=== PATIENT | male | born 1990 | race Caucasian/White ===

== ENCOUNTER 2017-08-27 01:33 | Emergency (ER) | payer SELFPAY ==
--- NOTE | 2017-08-27 02:17 | PDOC ---
History of Present Illness - General History Source: Patient <Jad Abdul - Last Filed: 08/27/17 03:03> - General History Source: Patient Exam Limitations: No Limitations - History of Present Illness Initial Comments: 08/27/17 03:14 Patient is a 27 year old male with no significant past medical history who presents to the ED with complaints of flu like symptoms that began earlier today. Patient reports experiencing non productive cough on wednesday as well as a headache. He reports experiencing intermittent episodes of diarrhea as well as subjective fevers, chills. Patient reports experiencing gradual dizziness while at home, stating he felt increasingly dizzy until he fell off of his bed. He reports working around multiple people who come into the state from [place] who are sick with colds and the flu and believes he has caught the flu from them. Patient reports taking one dosage of amoxicillin antibiotics this afternoon at 3pm stating he believed it would help alleviate with his abdominal pain. Denies chest pain, Sob. Denies nausea, vomiting. Denies dysuria, constipation, hematuria. Denies any other symptoms. Allergies: None Social history: No smoking. No alcohol. No illicit drugs. Surgical history: None PMD: None <Varinder Strong - Last Filed: 08/27/17 03:17> - General Chief Complaint: Cold Symptoms Stated Complaint: COLD SYMPTOMS Time Seen by Provider: 08/27/17 01:51 Past History - Suicide/Smoking/Psychosocial Hx Smoking History: Never smoked Have you smoked in the past 12 months: No Information on smoking cessation initiated: No Hx Alcohol Use: No Drug/Substance Use Hx: No <Jad Abdul - Last Filed: 08/27/17 03:03> <Varinder Strong - Last Filed: 08/27/17 03:17> - Past Medical History Allergies/Adverse Reactions: Allergies Allergy/AdvReac Type Severity Reaction Status Date / Time No Known Allergies Allergy Verified 08/27/17 01:58 Home Medications: Ambulatory Orders Azithromycin [Zithromax -] 250 mg PO UTDICT #6 tab 08/27/17 Metoclopramide HCl [Reglan] 10 mg PO QID #30 tablet 08/27/17 Pseudoephedrine HCl [Sudafed] 30 mg PO Q6H #30 tablet 08/27/17 Review of Systems - Review of Systems Able to Perform ROS?: Yes Comments:: 08/27/17 03:17 CONSTITUTIONAL: +general body aches. +chills. Absent: fever, no chills, no fatigue EYES: Absent: visual changes ENT: Absent: ear pain, no sore throat CARDIOVASCULAR: Absent: chest pain, no palpitations RESPIRATORY: Absent: cough, no SOB GI: +Abdominal pain. +Diarrhea. Absent: no nausea, no vomiting, no constipation, GENITOURINARY: Absent: dysuria, no frequency, no hematuria MUSCULOSKELETAL: Absent: back pain, no arthralgia, no myalgia SKIN: Absent: rash <Varinder Strong - Last Filed: 08/27/17 03:17> *Physical Exam - Vital Signs Last Vital Signs Temp Pulse Resp BP Pulse Ox 99.2 F 109 H 20 134/84 98 08/27/17 01:59 08/27/17 01:59 08/27/17 01:59 08/27/17 01:59 08/27/17 01:59 <Jad Abdul - Last Filed: 08/27/17 03:03> - Vital Signs Last Vital Signs Temp Pulse Resp BP Pulse Ox 99.2 F 109 H 20 134/84 98 08/27/17 01:59 08/27/17 01:59 08/27/17 01:59 08/27/17 01:59 08/27/17 01:59 - Physical Exam Comments: 08/27/17 03:17 GENERAL: Well-appearing, well-nourished. No apparent distress. HEENT: +Frontal and maxillary tenderness Normocephalic, atraumatic. PERRL, EOM intact. CARDIOVASCULAR: Normal S1, S2. Regular rate and rhythm. PULMONARY: Clear to auscultation bilaterally. ABDOMEN: Soft, non-distended, non-tender. EXTREMITIES: Normal ROM in all four extremities. No gross deformities. SKIN: Warm, dry. No rash NEUROLOGICAL: No focal neurological deficits. <Varinder Strong - Last Filed: 08/27/17 03:17> ED Treatment Course - ADDITIONAL ORDERS Additional order review: 08/27/17 02:27 Influenza Types A,B Antigen (FIDELIA) - Final Nasopharyngeal Swab - Final <Varinder Strong - Last Filed: 08/27/17 03:17> Medical Decision Making - Medical Decision Making 08/27/17 03:07 Dr. Abdul: The scribe's documentation has been prepared under my direction and personally reviewed by me in its entirery. I confirm that the note above accurately reflects all work, treatment, procedures, and medical decision making performed by me. <Jad Abdul - Last Filed: 08/27/17 03:03> *DC/Admit/Observation/Transfer - Discharge Dispostion Admit: No <Jad Abdul - Last Filed: 08/27/17 03:03> - Attestations Scribe Attestion: 08/27/17 03:17 Documentation prepared by Varinder Strong, acting as medical staffing coordinator for Jad Abdul MD/DO. <Varinder Strong - Last Filed: 08/27/17 03:17> Diagnosis at time of Disposition: Sinusitis Qualifiers: Sinusitis location: unspecified location Chronicity: acute Recurrence: non- recurrent Qualified Code(s): J01.90 - Acute sinusitis, unspecified - Discharge Dispostion Disposition: HOME - Prescriptions Prescriptions: Azithromycin [Zithromax -] 250 mg PO UTDICT #6 tab Metoclopramide HCl [Reglan] 10 mg PO QID #30 tablet Pseudoephedrine HCl [Sudafed] 30 mg PO Q6H #30 tablet - Referrals Referrals: Pedro Valencia MD [Staff Physician] - - Patient Instructions Printed Discharge Instructions: DI for Sinusitis Additional Instructions: Please take medication as directed. Drink plenty of fluids and have plenty of fluids. Follow up with your doctor as needed Print Language: [place] - Post Discharge Activity Forms/Work/School Notes: Back to Work
[2017-08-27 02:30] VITALS: BP 134/84; PULSE 109; TEMP 99.2; BMI 34.3
[2017-08-27] MEDS ORDERED: PSEUDOEPHEDRINE HCL 30 MG TABLET PO STA (02:59)
[2017-08-27] MEDS ORDERED: AZITHROMYCIN 250 MG TABLET PO STA (02:59)
[2017-08-27] MEDS ORDERED: METOCLOPRAMIDE HCL 10 MG TABLET (FP) PO ONE ×2 (03:00→03:13)
[2017-08-27] MEDS ORDERED: PSEUDOEPHEDRINE HCL 60 MG TABLET ONE (03:13)
[2017-08-27] MEDS ORDERED: AZITHROMYCIN 500 MG TABLET ONE (03:13)
== END 2017-08-27 03:17 | disposition home or self-care (01) ==
LOC: JER 01:33
DX: J01.90 Acute sinusitis, unspecified (principal)
CPT/HCPCS: 87804; 99281-25